=== PATIENT | male | born 1985 | race Caucasian/White ===

== ENCOUNTER 2016-04-27 14:26 | Emergency (ER) | payer SELFPAY ==
[~2016-04-27] VITALS: Ht 180.3 cm; Wt 86.2 kg
[~2016-04-27 14:26] MED LIST: HYDR-971 PO; IBUP200T77 PO; NAPR500T8 PO
[2016-04-27 14:50] VITALS: BP 142/98
[2016-04-27] MEDS ORDERED: NAPROXEN 500 MG TABLET PO STA (15:16)
--- NOTE | 2016-04-27 15:26 | PHYS DOC ---
Past Medical History Past Medical History: No Pertinent History Past Surgical History: No Surgical History Alcohol Use: Rarely Drug Use: Marijuana, Methamphetamine Social History Narrative: IV meth yesterday Adult General Chief Complaint Chief Complaint: HAND PROBLEM HPI HPI Patient is a 30 year old male who presents with right wrist and hand pain and swelling that began yesterday after using IV meth. Patient denies any fever. Review of Systems Review of Systems Constitutional: Denies fever or chills [] Musculoskeletal: Denies back pain or joint pain [] Integument: Right wrist and hand pain Neurologic: Denies headache, focal weakness or sensory changes [] Current Medications Current Medications Current Medications Medications (Trade) Dose Ordered Sig/Lisa Start Time Stop Time Status Last Admin Dose Admin Acetaminophen/ Hydrocodone Bitart (Lortab 5/325) 1 tab 1X ONCE 04/27/16 15:30 04/27/16 15:31 DC 04/27/16 15:33 1 TAB Diphtheria/ Tetanus/Acell Pertussis (Boostrix) 0.5 ml ONCE ONCE 04/27/16 15:30 04/27/16 15:31 DC 04/27/16 15:35 0.5 ML Naproxen (Naprosyn) 500 mg 1X STAT 04/27/16 15:16 04/27/16 15:20 DC 04/27/16 15:32 500 MG Allergies Allergies Allergies Coded Allergies Type Severity Reaction Last Updated Verified No Known Drug Allergies 12/02/15 No Physical Exam Physical Exam Constitutional: Well developed, well nourished, no acute distress, non-toxic appearance. [] Skin: Right wrist area with diffuse soft tissue swelling. No scaphoid tenderness on the right wrist. Scattered areas of cellulitis superficially throught the right wrist and hand. Full range of motion to the right wrist and hand. +2 right pedal pulse radial pulse. Adequate ulnar medial radial sensation to the right hand. Cap refill less than 2 seconds the right. Back: No tenderness, no CVA tenderness. [] Extremities: No tenderness, no cyanosis, no clubbing, ROM intact, no edema. [] Neurologic: Alert and oriented X 3, normal motor function, normal sensory function, no focal deficits noted. [] Psychologic: Affect normal, judgement normal, mood normal. [] Current Patient Data Vital Signs Vital Signs Date Time Temp Pulse Resp B/P Pulse Ox O2 Delivery O2 Flow Rate FiO2 04/27/16 15:33 20 97 Room Air 04/27/16 14:50 98.1 100 142/98 98.1 EKG EKG [] Radiology/Procedures Radiology/Procedures [] Course & Med Decision Making Course & Med Decision Making Pertinent Labs and Imaging studies reviewed. (See chart for details) Patient is in the ED cellulitis of the right hand and wrist from IV drug abuse. Right hand x-rays were obtained. There were noted for an old scaphoid fracture. Patient was discharged with Bactrim. We talked about avoiding street drugs. He was given tetanus in the ED Dragon Disclaimer Dragon Disclaimer This electronic medical record was generated, in whole or in part, using a voice recognition dictation system. Departure Departure Impression: Primary Impression: Cellulitis of right upper extremity Additional Impression: IV drug abuse Disposition: 01 HOME, SELF-CARE Condition: STABLE Referrals: NO PCP (PCP) Follow-up with your own doctor in one week Patient Instructions: Cellulitis Additional Instructions: You were seen for cellulitis of the right hand and wrist from IV drug use. Please stop using illegal drugs. Keep the affected area clean and dry. Complete your antibiotics. Follow-up with your doctor in one week. Come back to the ED if symptoms worsen. Scripts Sulfamethoxazole/Trimethoprim (Bactrim Ds Tablet)1 Each Tablet1 Tab PO BID #20 TAB Prov:ZULY LAUGHLIN APRN 04/27/16 Problem Qualifiers ZULY LAUGHLIN APRN Apr 27, 2016 15:26
[2016-04-27] MEDS ORDERED: HYDROCODONE/APAP 5/325MG TABLET. PO ONE (15:30)
[2016-04-27] MEDS ORDERED: DIPHTH,PERTUSS(ACELL),TET TOX 0.5 ML DISP.SYRIN. VAX IM ONE (15:30)
--- NOTE | 2016-04-27 15:37 | RAD ---
Right hand, 3 views, 04/27/2016: History: Pain, history of IV drug abuse Comparison is made to a study from 12/02/2015. There is a fracture of the distal pole of the scaphoid bone along its lateral margin. This was also evident on the previous study. The fracture is nonunited. No acute fracture or dislocation is identified. There is mild subcutaneous edema about the wrist. IMPRESSION: 1. Old nonunited fracture of the distal pole of the scaphoid bone. 2. No acute bony abnormality is detected.
[2016-04-27] MEDS ORDERED: SULF1TAB24 PO (15:53)
== END 2016-04-27 16:02 | disposition home or self-care (01) ==
LOC: ER 14:26
DX: L03.113 Cellulitis of right upper limb (principal); F19.10 Other psychoactive substance abuse, uncomplicated; F12.10 Cannabis abuse, uncomplicated; F15.10 Other stimulant abuse, uncomplicated
CPT/HCPCS: 73130; 90471; 90715; 99284-25

== ENCOUNTER 2016-09-03 16:05 | Emergency (ER) | payer SELFPAY ==
[~2016-09-03] VITALS: Ht 180.3 cm; Wt 86.2 kg
[~2016-09-03 16:05] MED LIST changes: +SULF1TAB24 PO
[2016-09-03 16:42] VITALS: BP 116/66
[2016-09-03] MEDS ORDERED: ACET1TAB33 PO (17:12)
[2016-09-03] MEDS ORDERED: SULF1TAB24 PO (17:12)
[2016-09-03] MEDS ORDERED: NAPR375T3 PO (17:12)
--- NOTE | 2016-09-03 17:13 | PHYS DOC ---
Past Medical History Past Medical History: Anxiety, Bipolar, Other Additional Past Medical Histor: PTSD Past Surgical History: No Surgical History Alcohol Use: Rarely Drug Use: Marijuana, Methamphetamine Adult General Chief Complaint Chief Complaint: ABSCESS HPI HPI Patient is a 31 year old male who presents with complaints of possible insect bite in the right inner thigh as well as the right forearm. Patient also complains of foreign discomfort in his testicles he thinks is due to issues with his prostate. Patient denies any recent illnesses, has not recently been on antibiotics, no history of trauma. Patient denies any alcohol or drug abuse. No fevers, vomiting, diarrhea, dysuria, discharge Review of Systems Review of Systems Constitutional: Denies fever or chills [] Eyes: Denies change in visual acuity, redness, or eye pain [] HENT: Denies neck pain Respiratory: Denies cough or shortness of breath [] Cardiovascular: No chest pain GI: Denies abdominal pain, nausea, vomiting, bloody stools or diarrhea [] : Denies dysuria or hematuria [] Musculoskeletal: Pain right forearm and right thigh Integument: Skin lesion right thigh Neurologic: Denies headache, focal weakness or sensory changes [] Endocrine: Denies polyuria or polydipsia [] Allergies Allergies Allergies Coded Allergies Type Severity Reaction Last Updated Verified No Known Drug Allergies 12/02/15 No Physical Exam Physical Exam Constitutional: Well developed, well nourished, mild distress, non-toxic appearance. [] HENT: Normocephalic, atraumatic,oropharynx moist, no oral exudates, nose normal. [] Eyes: EOMI, conjunctiva normal, no discharge. [] Neck: Normal range of motion, no tenderness, supple, no stridor. No LAD, no meningeal signs Cardiovascular:Heart rate regular rhythm. Normal perfusion, no vascular insufficiency Lungs & Thorax: Bilateral breath sounds clear to auscultation, no tachypnea Abdomen: Bowel sounds normal, soft, no tenderness, no masses, no pulsatile masses. [] : Visual genitourinary exam is normal. NO signs of infection, testicular torsion. Patient declined rectal examination. Skin:. Area of erythema volar aspect of the right forearm, possible insect bite with surrounding cellulitis in inner right thigh Back: No tenderness, no CVA tenderness. [] Extremities: No cyanosis, no clubbing, ROM intact, no edema. No signs of DVT, or vascular insufficiency. Neurologic: Alert and oriented X 3, normal motor function, normal sensory function, no focal deficits noted. Patient embedded in the ED with normal gait and without assistance Psychologic: Affect normal, judgement normal, mood normal. [] Current Patient Data Vital Signs Vital Signs Date Time Temp Pulse Resp B/P (MAP) Pulse Ox O2 Delivery O2 Flow Rate FiO2 09/03/16 16:42 99.3 90 24 100 Room Air 99.3 EKG EKG [] Radiology/Procedures Radiology/Procedures [] Course & Med Decision Making Course & Med Decision Making Pertinent Labs and Imaging studies reviewed. (See chart for details) I explained to the patient the need for rectal exam but the patient declined, he states he wants to try andtibiotics and see if he feels better. Patient has medical decision capacity, I explained to the patient that not allowing the rectal examination will limit the appropriate selection of antibiotics, patient still refuses. [] Dragon Disclaimer Dragon Disclaimer This electronic medical record was generated, in whole or in part, using a voice recognition dictation system. Departure Departure Impression: Primary Impression: Cellulitis of right upper extremity Additional Impressions: Cellulitis of right thigh Insect bite Disposition: HOME, SELF-CARE Condition: STABLE Referrals: NO PCP (PCP) Patient Instructions: Cellulitis, [id number], Insect Bite, [id number] Additional Instructions: please follow up at one of the clinics in the list provided to you for recheck and re-evaluation in 2-4 days. make sure to finish your antibiotics. discuss with your pcp the possible need for referral to urologist Scripts Naproxen (NAPROXEN) 375 Mg Tablet 1 TAB PO BID, #20 TAB 5 Refills Prov: Rach WILSON MD 09/03/16 Acetaminophen With Codeine (ACETAMINOPHEN-COD #3 TABLET) 1 Each Tablet 1 TAB PO PRN Q6HRS Y for PAIN for 2 Days, #8 TAB Prov: Rach WILSON MD 09/03/16 Sulfamethoxazole/Trimethoprim (BACTRIM DS TABLET) 1 Each Tablet 2 TAB PO BID, #40 TAB Prov: Rach WILSON MD 09/03/16 Problem Qualifiers Rach WILSON MD Sep 03, 2016 17:13
[2016-09-03] MEDS ORDERED: NAPROXEN 250 MG TABLET PO STA (17:33)
== END 2016-09-03 17:35 | disposition home or self-care (01) ==
LOC: ER 16:05
DX: L03.113 Cellulitis of right upper limb (principal); L03.115 Cellulitis of right lower limb; S70.361A Insect bite (nonvenomous), right thigh, initial encounter; F12.10 Cannabis abuse, uncomplicated; F15.10 Other stimulant abuse, uncomplicated; W57.XXXA Bitten or stung by nonvenomous insect and other nonvenomous arthropods, initial encounter; Y93.89 Activity, other specified; Y92.89 Other specified places as the place of occurrence of the external cause; Y99.8 Other external cause status
CPT/HCPCS: 99283

== ENCOUNTER 2018-06-03 13:16 | Emergency (ER) | payer SELFPAY ==
[~2018-06-03] VITALS: Ht 180.3 cm; Wt 107.5 kg
[~2018-06-03 13:16] MED LIST changes: +ACET1TAB33 PO; +HYDR-3164 PO; -HYDR-971 PO; +NAPR-695 PO
[2018-06-03 13:19] VITALS: BP 154/110
[2018-06-03] MEDS ORDERED: ERYTHROMYCIN 0.5% OPHTH OINTMENT 1GM TUBE. OS ONE (13:45)
[2018-06-03] MEDS ORDERED: TETRACAINE 0.5% OPHTH SOLUTION 4ML BOTTLE. OS ONE (13:45)
[2018-06-03] MEDS ORDERED: FLUORESCEIN OPHTH TEST STRIP. OS ONE (13:45)
[2018-06-03] MEDS ORDERED: ERYT1OIN6 OP (14:14)
[2018-06-03] MEDS ORDERED: IBUPROFEN 400 MG TABLET. PO ONE (14:15)
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
== END 2018-06-03 14:24 | disposition home or self-care (01) ==
LOC: ER 13:16
DX: S05.02XA Injury of conjunctiva and corneal abrasion without foreign body, left eye, initial encounter (principal); F41.9 Anxiety disorder, unspecified; F31.9 Bipolar disorder, unspecified; W50.0XXA Accidental hit or strike by another person, initial encounter; Y93.89 Activity, other specified; Y92.89 Other specified places as the place of occurrence of the external cause; Y99.8 Other external cause status
CPT/HCPCS: 99283; 99284

== ENCOUNTER 2020-02-02 10:08 | Emergency (ER) | payer SELFPAY ==
[~2020-02-02] VITALS: Ht 180.3 cm; Wt 110.0 kg
[~2020-02-02 10:08] MED LIST changes: +ERYT1OIN6 OP
[2020-02-02 10:19] VITALS: BP 154/81
[2020-02-02] MEDS ORDERED: LIDOCAINE 1% Multi-Dose 20 ML VIAL. INJ ONE (11:30)
--- NOTE | 2020-02-02 11:47 | RAD ---
Exam performed: 3 views rightwrist. Clinical Indication: Wrist laceration Date of Service: 02/02/2020 Comparison: None available Findings: PA, oblique and lateral radiographs of the wrist reveal the osseous structures to be intact and well aligned. The joint spaces are well-preserved and the articular margins are smooth. Evidence of acute fracture, dislocation or other significant osseous abnormality is not identified. There is diffuse so ft tissue swelling around the wrist. Impression: No acute abnormality seen in the right wrist Electronically signed by: Cris Howard MD (02/02/2020 11:45 AM) [id number]
--- NOTE | 2020-02-02 11:53 | PHYS DOC ---
Past Medical History Past Medical History: Anxiety, Bipolar, Other Additional Past Medical Histor: PTSD Past Surgical History: No Surgical History Smoking Status: Current Every Day Smoker Alcohol Use: Rarely Drug Use: None, Methamphetamine General Adult EDM: Chief Complaint: LACERATION/AVULSION HPI: HPI: Patient is a 34 year old male who presents with was using a journal box inspector was trying to cut through some wires when the journal box inspector slipped and caused a 2 inch laceration to the right tear wrist. Patient denies any numbness, tingling, focal weakness. He rates his throbbing nonradiating pain a 5 out of 10 but more so with movement. No bleeding at this time. Patient states his last tetanus was a year ago. Review of Systems: Review of Systems: Constitutional: Denies fever or chills. [] Eyes: Denies change in visual acuity. [] HENT: Denies nasal congestion or sore throat. [] Respiratory: Denies cough or shortness of breath. [] Cardiovascular: Denies chest pain or edema. [] GI: Denies abdominal pain, nausea, vomiting, bloody stools or diarrhea. [] : Denies dysuria. [] Musculoskeletal: Denies back pain or joint pain. + Right wrist pain. [] Integument: Denies rash. +Right wrist laceration. [] Neurologic: Denies headache, focal weakness or sensory changes. [] Endocrine: Denies polyuria or polydipsia. [] Lymphatic: Denies swollen glands. [] Psychiatric: Denies depression or anxiety. [] Heart Score: Risk Factors: Risk Factors: DM, Current or recent (<one month) smoker, HTN, HLP, family history of CAD, obesity. Risk Scores: Score 0 - 3: 2.5% MACE over next 6 weeks - Discharge Home Score 4 - 6: 20.3% MACE over next 6 weeks - Admit for Clinical Observation Score 7 - 10: 72.7% MACE over next 6 weeks - Early Invasive Strategies Current Medications: Current Medications Medications (Trade) Dose Ordered Sig/Lisa Start Time Stop Time Status Last Admin Dose Admin Lidocaine HCl (Lidocaine 1% 20ml Vial) 20 ml 1X ONCE 02/02/20 11:30 02/02/20 11:31 DC Allergies: Allergies: Allergies Coded Allergies Type Severity Reaction Last Updated Verified No Known Drug Allergies 12/02/15 No Physical Exam: PE: Constitutional: Well developed, well nourished, no acute distress, non-toxic appearance. [] HENT: Normocephalic, atraumatic, bilateral external ears normal, oropharynx moist, no oral exudates, nose normal. [] Eyes: PERRLA, EOMI, conjunctiva normal, no discharge. [] Neck: Normal range of motion, no tenderness, supple, no stridor. [] Cardiovascular:Heart rate regular rhythm, no murmur [] Lungs & Thorax: Bilateral breath sounds clear to auscultation [] Abdomen: Bowel sounds normal, soft, no tenderness, no masses, no pulsatile mas ses. [] Skin: Warm, dry, no erythema, no rash. Right wrist laceration. [] Back: No tenderness, no CVA tenderness. [] Extremities: No tenderness, no cyanosis, no clubbing, ROM intact, no edema. [] Neurologic: Alert and oriented X 3, normal motor function, normal sensory function, no focal deficits noted. [] Psychologic: Affect normal, judgement normal, mood normal. [] Current Patient Data: Vital Signs: Vital Signs Date Time Temp Pulse Resp B/P (MAP) Pulse Ox O2 Delivery O2 Flow Rate FiO2 02/02/20 10:19 97.6 111 18 154/81 (105) 95 Room Air 97.6 EKG: EKG: [] Radiology/Procedures: Radiology/Procedures: [] Impression: [facility] [address] [place] [address] IMAGING REPORT Signed PATIENT: NEDA NG MACCOUNT: [id number] : 1985 LOCATION: ER AGE: 34 SEX: M EXAM STATUS: REG ER ORD. PHYSICIAN: NOMI TRINH APRN REASON: laceration rt wrist PROCEDURE: WRIST 3V RIGHT Exam performed: 3 views rightwrist. Clinical Indication: Wrist laceration Date of Service: 02/02/2020 Comparison: None available Findings: PA, oblique and lateral radiographs of the wrist reveal the osseous structures to be intact and well aligned. The joint spaces are well-preserved and the articular margins are smooth. Evidence of acute fracture, dislocation or other significant osseous abnormality is not identified. There is diffuse soft tissue swelling around the wrist. Impression: No acute abnormality seen in the right wrist Electronically signed by: Cris Howard MD (02/02/2020 11:45 AM) [id number] DICTATED and SIGNED BY: CRIS HOWARD MD DATE: 02/02/20 [id number] Course & Med Decision Making: Course & Med Decision Making Pertinent Labs and Imaging studies reviewed. (See chart for details) See HPI. Alert and oriented x4. Ambulatory steady gait. Radial pulse strong and present. Skin pink warm and dry. Bleeding is scant. Patient has full range of motion of the wrist and the fingers and can make a tight fist. No focal laxities. No joint deformities. No foreign bodies. No signs of infection. Laceration repair Location: Right dorsal wrist Local anesthesia: 1% lidocaine Interrupted sutures/Internal sutures: 4 stitches using 4-0 Nerve/ligament/muscle damage: None Cleaning and irrigation: Chlorhexidine and saline The appropriate timeout was taken. The area was prepped and draped in the usual sterile fashion. The wound was copiously irrigated with normal saline and chlorhexidine. Patient tolerated well without complication. Dressing was ap plied to the area follow-up education is given to observe for signs and symptoms of infection, bleeding and to follow-up promptly if these occur. Patient can return in 48 hours for a wound recheck. Sutures to be removed in 7 to 10 days. [] Dragon Disclaimer: Dragon Disclaimer: This electronic medical record was generated, in whole or in part, using a voice recognition dictation system. Departure Departure Impression: Primary Impression: Laceration Disposition: 01 DC HOME SELF CARE/HOMELESS Condition: STABLE Referrals: NO PCP (PCP) Patient Instructions: Laceration Care, Adult Additional Instructions: Your sutures need to come out in 10 days. Keep it clean and covered. Wash with soap and water. Watch for signs of infection. NOMI TRINH APRN Feb 02, 2020 11:53
== END 2020-02-02 12:30 | disposition home or self-care (01) ==
LOC: ER 10:08
DX: S61.511A Laceration without foreign body of right wrist, initial encounter (principal); F41.9 Anxiety disorder, unspecified; F17.200 Nicotine dependence, unspecified, uncomplicated; F19.90 Other psychoactive substance use, unspecified, uncomplicated; F31.9 Bipolar disorder, unspecified; F43.10 Post-traumatic stress disorder, unspecified; W26.8XXA Contact with other sharp object(s), not elsewhere classified, initial encounter; Y93.89 Activity, other specified; Y92.89 Other specified places as the place of occurrence of the external cause; Y99.8 Other external cause status
CPT/HCPCS: 12002; 73110; 99283; J3490

== ENCOUNTER 2020-02-03 13:41 | Emergency (ER) | payer SELFPAY ==
[~2020-02-03] VITALS: Ht 162.6 cm; Wt 73.0 kg
[2020-02-03 13:50] VITALS: BP 143/68
[2020-02-03] MEDS ORDERED: AZITHROMYCIN 250 MG TABLET. PO ONE (14:00)
[2020-02-03] MEDS ORDERED: cefTRIAXone IM 250 MG VIAL IM ONE (14:00)
[2020-02-03 14:02] LABS: BILIRUBIN,URINE NEGATIVE (NEG); CLARITY,URINE CLOUDY; COLOR,URINE YELLOW; NITRITE,URINE NEGATIVE (NEG); PH,URINE 7.5 (<5.0-8.0); PROTEIN,URINE NEGATIVE (NEG-TRACE)
[2020-02-03 14:13] LABS: AMORPHOUS SEDIMENT,UR PRESENT /HPF
[2020-02-03 14:14] LABS: BACTERIA,URINE 0 /HPF (0-FEW); RBC,URINE 0 /HPF (0-2); WBC,URINE 0 /HPF (0-4)
--- NOTE | 2020-02-03 14:19 | PHYS DOC ---
Past Medical History Past Medical History: Anxiety, Bipolar, Other Additional Past Medical Histor: PTSD Past Surgical History: No Surgical History Smoking Status: Current Every Day Smoker Alcohol Use: Rarely Drug Use: None, Methamphetamine General Adult EDM: Chief Complaint: SEXUALLY TRANSMITTED DISEASE HPI: HPI: Patient is a 34 year old male who presents with girlfriend is being treated for sexually transmitted diseases and states he also needs to be treated. He denies penile discharge, urinary symptoms, back pain, abdominal pain. Denies any pain this time. Review of Systems: Review of Systems: Constitutional: Denies fever or chills. [] Eyes: Denies change in visual acuity. [] HENT: Denies nasal congestion or sore throat. [] Respiratory: Denies cough or shortness of breath. [] Cardiovascular: Denies chest pain or edema. [] GI: Denies abdominal pain, nausea, vomiting, bloody stools or diarrhea. [] : Denies dysuria. + Possible sexual transmitted disease [] Musculoskeletal: Denies back pain or joint pain. [] Integument: Denies rash. [] Neurologic: Denies headache, focal weakness or sensory changes. [] Endocrine: Denies polyuria or polydipsia. [] Lymphatic: Denies swollen glands. [] Psychiatric: Denies depression or anxiety. [] Heart Score: Risk Factors: Risk Factors: DM, Current or recent (<one month) smoker, HTN, HLP, family history of CAD, obesity. Risk Scores: Score 0 - 3: 2.5% MACE over next 6 weeks - Discharge Home Score 4 - 6: 20.3% MACE over next 6 weeks - Admit for Clinical Observation Score 7 - 10: 72.7% MACE over next 6 weeks - Early Invasive Strategies Current Medications: Current Medications Medications (Trade) Dose Ordered Sig/Lisa Start Time Stop Time Status Last Admin Dose Admin Azithromycin (Zithromax) 1,000 mg 1X ONCE 02/03/20 14:00 02/03/20 14:01 DC Ceftriaxone Sodium (Rocephin Im) 250 mg 1X ONCE 02/03/20 14:00 02/03/20 14:01 DC Allergies: Allergies: Allergies Coded Allergies Type Severity Reaction Last Updated Verified No Known Drug Allergies 12/02/15 No Physical Exam: PE: Constitutional: Well developed, well nourished, no acute distress, non-toxic appearance. [] HENT: Normocephalic, atraumatic, bilateral external ears normal, oropharynx moist, no oral exudates, nose normal. [] Eyes: PERRLA, EOMI, conjunctiva normal, no discharge. [] Neck: Normal range of motion, no tenderness, supple, no stridor. [] Cardiovascular:Heart rate regular rhythm, no murmur [] Lungs & Thorax: Bilateral breath sounds clear to auscultation [] Abdomen: Bowel sounds normal, soft, no tenderness, no masses, no pulsatile masses. [] Skin: Warm, dry, no erythema, no rash. [] Back: No tenderness, no CVA tenderness. [] Extremities: No tenderness, no cyanosis, no clubbing, ROM intact, no edema. [] Neurologic: Alert and oriented X 3, normal motor function, normal sensory function, no focal deficits noted. [] Psychologic: Affect normal, judgement normal, mood normal. Normal physical exam [] Current Patient Data: Labs: Laboratory Tests Test 02/03/20 13:14 Urine Collection Type Unknown Urine Color Yellow Urine Clarity Cloudy Urine pH 7.5 (<5.0-8.0) Urine Specific [place] 1.020 (1.000-1.030) Urine Protein Negative mg/dL (NEG-TRACE) Urine Glucose (UA) Negative mg/dL (NEG) Urine Ketones (Stick) Negative mg/dL (NEG) Urine Blood Negative (NEG) Urine Nitrite Negative (NEG) Urine Bilirubin Negative (NEG) Urine Urobilinogen Dipstick 1.0 mg/dL (0.2 mg/dL) Urine Leukocyte Esterase Negative (NEG) Urine RBC 0 /HPF (0-2) Urine WBC 0 /HPF (0-4) Urine Squamous Epithelial Cells Few /LPF Urine Amorphous Sediment Present /HPF Urine Bacteria 0 /HPF (0-FEW) Urine Mucus Mod /LPF Vital Signs: Vital Signs Date Time Temp Pulse Resp B/P (MAP) Pulse Ox O2 Delivery O2 Flow Rate FiO2 02/03/20 13:50 98.8 92 16 143/68 (93) 99 Room Air 98.8 EKG: EKG: [] Radiology/Procedures: Radiology/Procedures: [] Course & Med Decision Making: Course & Med Decision Making Pertinent Labs and Imaging studies reviewed. (See chart for details) See HPI. Alert and oriented x4. Ambulatory with steady gait. Speaks in full complete sentences. Patient will be treated with azithromycin and Rocephin in the ED. He is educated that the results will come back and 48 hours and they w ill be called only if he is positive. Abdomen soft and nontender. No penile discharge or sores are seen. [] Dragon Disclaimer: Dragon Disclaimer: This electronic medical record was generated, in whole or in part, using a voice recognition dictation system. Departure Departure Impression: Primary Impression: Sexually transmitted disease exposure Disposition: 01 DC HOME SELF CARE/HOMELESS Condition: STABLE Referrals: NO PCP (PCP) Patient Instructions: Sexually Transmitted Disease, [id number] Additional Instructions: Follow-up with primary care provider if needed. Will be called in 48 hours only if your results come back positive. NOMI [employer]INH [employer] Feb 03, 2020 14:19
== END 2020-02-03 14:30 | disposition home or self-care (01) ==
LOC: ER 13:41
DX: A63.8 Other specified predominantly sexually transmitted diseases (principal); F41.9 Anxiety disorder, unspecified; F31.9 Bipolar disorder, unspecified; F17.200 Nicotine dependence, unspecified, uncomplicated; F19.90 Other psychoactive substance use, unspecified, uncomplicated
CPT/HCPCS: 81001; 87491; 87591; 96372; 99283; J0696

== ENCOUNTER 2020-09-10 15:52 | Emergency (ER) | payer SELFPAY | END 2020-09-10 16:20 | disposition left against medical advice (07) | LOC: ER 15:52 | DX: R10.9 Unspecified abdominal pain (principal); Z53.21 Procedure and treatment not carried out due to patient leaving prior to being seen by health care provider ==

== ENCOUNTER 2021-03-09 20:26 | Emergency (ER) | payer SELFPAY | END 2021-03-09 22:29 | disposition left against medical advice (07) | LOC: ER 20:26 | DX: R51.9 Headache, unspecified (principal); R41.0 Disorientation, unspecified; Z53.21 Procedure and treatment not carried out due to patient leaving prior to being seen by health care provider ==